=== PATIENT | female | born 1965 | race American Indian/Alaskan Native ===

== ENCOUNTER 2016-12-04 09:09 | Emergency (ER) | payer OTHER ==
[2016-12-04 09:14] VITALS: TEMP 98; O2SAT 99; BMI 45.4
--- NOTE | 2016-12-04 10:25 | RAD ---
PROCEDURE: Right Knee Radiographs. HISTORY: fall R knee pain COMPARISON: None. FINDINGS: BONES: Normal. No fracture. JOINTS: Normal. No osteoarthritis. JOINT EFFUSION: None. OTHER FINDINGS: None. IMPRESSION: Normal radiographs of the right knee.
--- NOTE | 2016-12-04 10:27 | RAD ---
PROCEDURE: Right Hand Radiographs. HISTORY: fall ice, R hand pain COMPARISON: None. FINDINGS: BONES: Normal. No fracture. JOINTS: Normal. No osteoarthritic changes. SOFT TISSUES: Normal. OTHER FINDINGS: None. IMPRESSION: Normal right hand radiographs.
--- NOTE | 2016-12-04 10:57 | US ---
PROCEDURE: Ultrasound of the Kidneys HISTORY: R flank pain s/p fall and flank trauma/ hematuroia COMPARISON: None available. TECHNIQUE: Sonogram of the kidneys. FINDINGS: RIGHT KIDNEY: Measures: cm. Normal in size, contour and echogenicity. No stone, solid mass lesion or hydronephrosis visualized. LEFT KIDNEY: Measures: cm. Normal in size, contour and echogenicity. No stone, solid mass lesion or hydronephrosis visualized. OTHER FINDINGS: None. IMPRESSION: Unremarkable renal sonogram.
--- NOTE | 2016-12-04 11:43 | ED PDOC ---
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 Denies head or neck trauma, states injured R knee, R flank and R hand. Denies weakness, dizziness or back pain. Past Medical History Reviewed: Historical Data, Nursing Documentation, Vital Signs Vital Signs: Last Vital Signs Temp 98 F 12/04/16 09:13 Pulse 94 H 12/04/16 09:13 Resp BP 114/66 12/04/16 09:13 Pulse Ox 99 12/04/16 09:13 - Medical History PMH: No Chronic Diseases - Surgical History Other surgeries: hysterectomy - Family History Family History: States: Unknown Family Hx - Living Arrangements Living Arrangements: With Family - Social History Current smoker - smoking cessation education provided: No - Home Medications Home Medications: Ambulatory Orders Medication Instructions Recorded Ibuprofen [Motrin Tab] 600 mg PO Q6 PRN #15 tab 12/04/16 - Allergies Allergies/Adverse Reactions: Allergies Allergy/AdvReac Type Severity Reaction Status Date / Time No Known Allergies Allergy Verified 12/04/16 09:19 Review of Systems ROS Statement: Except As Marked, All Systems Reviewed And Found Negative Constitutional: Negative for: Fever, Chills ENT: Negative for: Ear Pain, Ear Discharge Cardiovascular: Negative for: Chest Pain, Palpitations Respiratory: Negative for: Cough, Shortness of Breath Gastrointestinal: Negative for: Nausea, Vomiting Genitourinary Female: Negative for: Dysuria, Frequency Musculoskeletal: Positive for: Hand Pain, Leg Pain. Negative for: Neck Pain, Shoulder Pain, Arm Pain, Back Pain, Foot Pain Skin: Negative for: Rash, Lesions, Jaundice Neurological: Negative for: Weakness, Numbness, Headache, Dizziness Psych: Negative for: Anxiety Physical Exam - Reviewed Nursing Documentation Reviewed: Yes Vital Signs Reviewed: Yes - Physical Exam Appears: Positive for: Well, Non-toxic, No Acute Distress Head Exam: Positive for: ATRAUMATIC, NORMAL INSPECTION, NORMOCEPHALIC Skin: Positive for: Normal Color, Warm, DRY Eye Exam: Positive for: EOMI, Normal appearance, PERRL ENT: Positive for: Normal ENT Inspection Neck: Positive for: Normal, Painless ROM Cardiovascular/Chest: Positive for: Regular Rate, Rhythm Respiratory: Positive for: CNT, Normal Breath Sounds Gastrointestinal/Abdominal: Positive for: Bowel Sounds, Soft. Negative for: Tenderness Back: Positive for: Normal Inspection Extremity: Positive for: Normal ROM, Other (R knee and R dorsal hand tenderness) . Negative for: Deformity, Swelling Neurologic/Psych: Positive for: Alert, Oriented, Gait (stable and normal). Negative for: Motor/Sensory Deficits - ECG O2 Sat by Pulse Oximetry: 99 Medical Decision Making Medical Decision Making: xrays R knee and R hand performed and read by radiologist as negative. UDip showed trace blood given R flank pain US renal ordered, unremarkable per radiologist. Given motrin 600mg for pain w improvement in ED. DALIA wrap applied to R knee. Followup instructions and paperwork for workplace injury completed. Disposition - Clinical Impression Clinical Impression: Fall, Knee contusion, Hand contusion, Contusion, flank - Patient ED Disposition Is Patient to be Admitted: No Counseled Patient/Family Regarding: Studies Performed, Diagnosis, Need For Followup, Rx Given - Disposition Referrals: Sal Fairchild MD [Staff Provider] - Disposition: Routine/Home Disposition Time: 11:20 Condition: STABLE Additional Instructions: Followup with primary doctor in 2-3 days if symptoms persist. Return to ER for any new or worsening symptoms. Prescriptions: Ibuprofen [Motrin Tab] 600 mg PO Q6 PRN #15 tab PRN Reason: Pain, Moderate (4-7) Instructions: Contusion in Adults (ED), Hand Sprain (ED) Forms: [facility] ED School/Work Excuse - POA Present On Arrival: Falls Or Trauma
[2016-12-04 11:44] VITALS: BP 130/78; PULSE 78; RESP 18
== END 2016-12-04 11:45 | disposition home or self-care (01) ==
LOC: H.ER 09:09
DX: S80.00XA Contusion of unspecified knee, initial encounter (principal); S60.229A Contusion of unspecified hand, initial encounter; S39.91XA Unspecified injury of abdomen, initial encounter; W19.XXXA Unspecified fall, initial encounter; Y92.89 Other specified places as the place of occurrence of the external cause

== ENCOUNTER 2017-01-08 13:28 | Emergency (ER) | payer OTHER ==
[2017-01-08 13:28] VITALS: BMI 45.4
[2017-01-08 13:58] VITALS: BP 159/85; PULSE 89; RESP 20; TEMP 98.5; O2SAT 99
--- NOTE | 2017-01-08 14:30 | ED PDOC ---
Lower Extremity Pain/Injury Time Seen by Provider: 01/08/17 14:00 Chief Complaint (Nursing): Lower Extremity Problem/Injury Additional Complaint(s): pt. into ER c/o continued right knee and thigh pain x 1 month s/p injury while at work. Pt states she fell at work on 12/04/16. Pt states she was seen in ER at that time and all x-rays normal (reviewed previous visit). Pt states she continues to have pain. Pt states some days are better than other and she has improvement with naproxen at home. No new injury. Pt has not follow-up with orthopedics. Pt states she was told to return to the OR by nurse in employee health. Past Medical History Reviewed: Historical Data, Nursing Documentation, Vital Signs Vital Signs: Last Vital Signs Temp 98.5 F 01/08/17 13:54 Pulse 89 01/08/17 13:54 Resp 20 01/08/17 13:54 BP 159/85 H 01/08/17 13:54 Pulse Ox 99 01/08/17 13:54 - Medical History PMH: No Chronic Diseases - Surgical History Surgical History: No Surg Hx - Family History Family History: States: Unknown Family Hx - Home Medications Home Medications: Ambulatory Orders Medication Instructions Recorded Ibuprofen [Motrin Tab] 600 mg PO Q6 PRN #15 tab 12/04/16 Naproxen 500 mg PO BID PRN #20 tab 01/08/17 - Allergies Allergies/Adverse Reactions: Allergies Allergy/AdvReac Type Severity Reaction Status Date / Time No Known Allergies Allergy Verified 01/08/17 13:54 Physical Exam - Reviewed Nursing Documentation Reviewed: Yes Vital Signs Reviewed: Yes - Physical Exam Appears: Positive for: Well, Non-toxic, No Acute Distress Head Exam: Positive for: ATRAUMATIC, NORMAL INSPECTION, NORMOCEPHALIC Skin: Positive for: Normal Color, Warm, DRY Eye Exam: Positive for: Normal appearance ENT: Positive for: Normal ENT Inspection Neck: Positive for: Normal, Painless ROM Respiratory: Negative for: Accessory Muscle Use, Respiratory Distress Back: Positive for: Normal Inspection Extremity: Positive for: Normal ROM, Other (Steady gait ). Negative for: Tenderness, Deformity, Swelling Neurologic/Psych: Positive for: Alert, Oriented - ECG O2 Sat by Pulse Oximetry: 99 Disposition - Clinical Impression Clinical Impression: Knee pain - Patient ED Disposition Is Patient to be Admitted: No Counseled Patient/Family Regarding: Diagnosis, Need For Followup, Rx Given - Disposition Referrals: Dennis Denny III, MD [Staff Provider] - Disposition: Routine/Home Disposition Time: 14:28 Condition: STABLE Prescriptions: Naproxen 500 mg PO BID PRN #20 tab PRN Reason: Pain Instructions: Knee Pain (ED)
== END 2017-01-08 14:42 | disposition home or self-care (01) ==
LOC: H.ER 13:28
DX: M25.561 Pain in right knee (principal)

== ENCOUNTER 2017-10-06 16:50 | Emergency (ER) | payer OTHER ==
[2017-10-06 16:51] VITALS: BMI 45.4
[2017-10-06 17:02] VITALS: RESP 16
--- NOTE | 2017-10-06 18:07 | ED PDOC ---
HPI: Chest Pain Chief Complaint (Provider): "cough, congestion, feeling terrible" History Per: Patient Onset/Duration Of Symptoms: Days Current Symptoms Are (Timing): Still Present Severity: None Pain Scale Rating Of: 0 Exacerbating Factors: Deep Breathing Alleviating Factors: None <Luke Vera - Last Filed: 10/06/17 18:55> <Hoa Hernandez - Last Filed: 10/07/17 18:04> Time Seen by Provider: 10/06/17 17:34 Chief Complaint (Nursing): Palpitations Additional Complaint(s): 52 y/o female with an unremarkable PMHx as per pt presents complaining of worsening cough, congestion, and generalized ill feeling since Wednesday. Pt reports since Wednesday, her congestion has been worsening, causing difficulty sleeping, as well as an associated cough. Cough is intermittently productive with scant yellowish sputum. She also reports sore throat, which she attains to the coughing episodes. Denies fever but reports intermittent swings in temp from hot and cold. She took several OTC cold remedies (nyquil, dayquil, mucinex , vitamin C) without any improvment. No other complaints. No sick contacts. Pt reports being vaccinated for influenza this season. Denies fever, CP/ palpitations, N/V/D/C, urinary symptoms. (Luke Vera) Supervising Attending Note - Supervising Attending Note The Documented history was done by the: Physician Senior Project Coordinator, Attending Physician The documented physical exam was done by the: Physician Senior Project Coordinator, Attending Physician - Attestation: I have personally seen and examined this patient.: Yes I have fully participated in the care of the patient.: Yes I have reviewed all pertinent clinical information: Yes <Hoa Hernandez - Last Filed: 10/07/17 18:04> Past Medical History - Family History Family History: States: Unknown Family Hx <Luke Vera - Last Filed: 10/06/17 18:55> <Hoa Hernandez - Last Filed: 10/07/17 18:04> Vital Signs: Last Vital Signs Temp 98.9 F 10/06/17 19:24 Pulse 88 10/06/17 19:24 Resp 16 10/06/17 19:24 BP 126/85 10/06/17 19:24 Pulse Ox 100 10/06/17 19:24 - Home Medications Home Medications: Ambulatory Orders Medication Instructions Recorded Ibuprofen [Motrin Tab] 600 mg PO Q6 PRN #15 tab 12/04/16 Naproxen 500 mg PO BID PRN #20 tab 01/08/17 - Allergies Allergies/Adverse Reactions: Allergies Allergy/AdvReac Type Severity Reaction Status Date / Time No Known Allergies Allergy Verified 10/06/17 16:58 BREEZY Risk Score for UA/NSTEMI - BREEZY Risk Score Age > 64: NO BREEZY Score: 0 Risk %: 5% <Luke Vera - Last Filed: 10/06/17 18:55> Curb-65 Severity Score - CURB-65 Severity Score Confusion: No Respiratory Rate greater than/equal to 30: No Systolic BP <90 or Diastolic BP less than/equal 60mmHg: No Curb-65 Score: 0 Percentage 30-day mortality: 0.6% <Luke Vera - Last Filed: 10/06/17 18:55> Wells Criteria for PE - Wells Criteria for Pulmonary Embolism Clinical Signs and Symptoms of DVT: No Total Score: 0 <Luke Vera - Last Filed: 10/06/17 18:55> Review of Systems ROS Statement: Except As Marked, All Systems Reviewed And Found Negative <Luke Vera - Last Filed: 10/06/17 18:55> Physical Exam - Reviewed Vital Signs Reviewed: Yes - Physical Exam Appears: Positive for: Non-toxic, No Acute Distress Head Exam: Positive for: ATRAUMATIC, NORMOCEPHALIC Skin: Positive for: Normal Color, Warm, Dry Eye Exam: Positive for: EOMI, PERRL. Negative for: Conjunctival injection Neck: Positive for: Painless ROM Cardiovascular/Chest: Positive for: Regular Rate, Rhythm. Negative for: Edema, JVD, Murmur Respiratory: Positive for: Normal Breath Sounds. Negative for: Accessory Muscle Use, Crackles, Rales, Rhonchi, Wheezing, Respiratory Distress Pulses-Radial (L): 2+ Pulses-Radial (R): 2+ Back: Negative for: L CVA Tenderness, R CVA Tenderness Lymphatic: Positive for: Normal Exam. 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, Oriented, Motor/Sensory Deficits <Luke Vera - Last Filed: 10/06/17 18:55> - ECG O2 Sat by Pulse Oximetry: 99 <Luke Vera - Last Filed: 10/06/17 18:55> <Hoa Hernandez - Last Filed: 10/07/17 18:04> - Progress ED Course And Treament: Influenza A/B: negative CXR: negative (uLke Vera) Disposition - Patient ED Disposition Is Patient to be Admitted: No - Disposition Disposition: Routine/Home Disposition Time: 18:55 <Luke Vera - Last Filed: 10/06/17 18:55> <Hoa Hernandez - Last Filed: 10/07/17 18:04> - Clinical Impression Clinical Impression: Influenza-like illness - Disposition Condition: GOOD Additional Instructions: REST AND DRINK PLENTY OF HYDRATING FLUIDS TAKE TYLENOL OR MOTRIN NEEDED FOR FEVER OR ACHES FOLLOW UP WITH YOUR DOCTOR IN 2-3 DAYS Instructions: Upper Respiratory Infection (ED), Cold Symptoms (ED) Forms: [facility] ED School/Work Excuse
--- NOTE | 2017-10-06 18:35 | RAD ---
HISTORY: cough body aches COMPARISON: 05/15/2010 TECHNIQUE: Chest PA and lateral FINDINGS: LUNGS: No active pulmonary disease. PLEURA: No significant pleural effusion identified. No pneumothorax apparent. CARDIOVASCULAR: Normal. OSSEOUS STRUCTURES: No significant abnormalities. VISUALIZED UPPER ABDOMEN: Normal. OTHER FINDINGS: None. IMPRESSION: No active disease.
[2017-10-06 19:25] VITALS: BP 126/85; PULSE 88; TEMP 98.9; O2SAT 100
--- NOTE | 2017-10-07 14:24 | CARD ---
APPROVED REPORT EKG Measurement Heart [id number] <Conclusion> Normal sinus rhythm Normal ECG
== END 2017-10-06 19:25 | disposition home or self-care (01) ==
LOC: H.ER 16:50
DX: J11.1 Influenza due to unidentified influenza virus with other respiratory manifestations (principal); J06.9 Acute upper respiratory infection, unspecified; R00.2 Palpitations